=== PATIENT | male | born 1985 | race Asian ===

== ENCOUNTER 2020-09-04 20:10 | Emergency (ER) | payer MEDICAID ==
[~2020-09-04] VITALS: Ht 175.3 cm; Wt 62.6 kg
[2020-09-04 20:10] VITALS: BP_SYST 120
--- NOTE | 2020-09-04 20:22 | NUR ---
Patient to ER bed 7 to gown for evaluation. Side rails up.
--- NOTE | 2020-09-04 20:25 | NUR ---
Pt came to ER after dog bite on L thigh rates pain 5/10. Pt resting in [place], appears comfortable, no other complaints at this time, awaiting MD.
--- NOTE | 2020-09-04 20:30 | NUR ---
ER at bedside examining patient.
[2020-09-04] MEDS ORDERED: LIDOCAINE 1% 10 MG/ML, 20 ML MDV INJ ONE (20:45)
--- NOTE | 2020-09-04 20:48 | NUR ---
Laceration tray and sutures set up at bedside for
[2020-09-04] MEDS ORDERED: DIPH-TET-PERTUS Vaccine 0.5 ML VIAL (ADACEL) I.M. ONE (21:00)
[2020-09-04] MEDS ORDERED: LIDOCAINE 1%, 20 ML MDV 20 ML ONE (21:22)
[2020-09-04 21:28] VITALS: BP_SYST 120
--- NOTE | 2020-09-04 21:29 | NUR ---
Patient given written and verbal discharge instructions and verbalizes understanding. ER MD discussed with patient the results and treatment provided. Patient in stable condition. ID arm band removed. Rx of Naprosyn and Augmentin given. Patient educated on pain management and to follow up with PMD. Pain Scale 0/10. Opportunity for questions provided and answered. Medication side effect fact sheet provided.
[2020-09-04] MEDS ORDERED: BACITRACIN 1 GM OINT TP ONE (21:33)
== END 2020-09-04 21:29 | disposition home or self-care (01) ==
LOC: SED 20:10
DX: S71.112A Laceration without foreign body, left thigh, initial encounter (principal); W54.0XXA Bitten by dog, initial encounter; Y93.89 Activity, other specified; Y92.89 Other specified places as the place of occurrence of the external cause; Y99.8 Other external cause status
CPT/HCPCS: 12002; 90471; 90715; 99283; J2001

== ENCOUNTER 2020-09-12 17:41 | Emergency (ER) | payer SELFPAY ==
[~2020-09-12] VITALS: Ht 172.7 cm; Wt 64.4 kg
[2020-09-12 17:47] VITALS: BP_SYST 138
[2020-09-12 18:35] VITALS: BP_SYST 139
== END 2020-09-12 18:35 | disposition home or self-care (01) ==
LOC: SED 17:41
DX: S71.112D Laceration without foreign body, left thigh, subsequent encounter (principal); W54.0XXD Bitten by dog, subsequent encounter
CPT/HCPCS: 99281